=== PATIENT | male | born 1950 | race Two or more races ===

== ENCOUNTER 2021-05-11 14:56 | Inpatient (IN) | payer MEDICARE, MEDICAID ==
[~2021-05-11] VITALS: Ht 177.8 cm; Wt 97.1 kg
[2021-05-11] MEDS ORDERED: ASPirin 81 mg TAB PO ONE (15:30)
[2021-05-11 16:54] LABS: Hematocrit 39.4 % (41.0-53.0); Hemoglobin 13.6 g/dL (13.5-17.5); Mean Corpuscular Hemoglobin 31.2 pg (28.0-32.0); Mean Corpuscular Hgb Conc. 34.5 g/dL (32.0-36.0); Mean Corpuscular Volume 90.5 fL (80.0-100.0); Red Blood Cells 4.35 10^6/uL (4.5-5.90); Red Cell Distribution Width 13.1 % (11.8-14.3); White Blood Cell 8.2 10^3/uL (4.4-10.8)
[2021-05-11 16:57] LABS: Basophils % (manual) 0 (0.0-2.0); Blast Cells 0; Eosinophils % (manual) 0 (0-7); Metamyelocytes % 0; Myelocytes % 0; Promyelocytes % 0
[2021-05-11 17:07] LABS: Albumin 3.2 g/dL (3.4-5.0); Calcium 8.9 mg/dL (8.5-10.1); Magnesium 3.4 mg/dL (1.6-2.6); Potassium 3.4 mmol/L (3.5-5.1)
[2021-05-11 17:12] LABS: Band Neutrophils % (manual) 3; Lymphocytes % (manual) 9 (10.0-50.0); Monocytes % (manual) 11 (0-12); Reactive Lymphocytes 1
[2021-05-11 17:27] LABS: BUN/Creatinine Ratio 20.1; Bilirubin, Total 0.7 mg/dL (0.2-1.0); CRP High Sensitivity 12.9 mg/dL (< 0.3); Total Protein 7.8 g/dL (6.4-8.2)
[2021-05-11] MEDS ORDERED: ZINC SULFATE 220mg CAP or TAB PO ONE (19:15)
[2021-05-11] MEDS ORDERED: AZITHROMYCIN 500MG/ 250ML 250 ML IV ONE (19:15)
[2021-05-11] MEDS ORDERED: CHOLECALCIFEROL (VITD3) 2,000 UNIT CAP/TAB PO ONE (19:15)
[2021-05-11] MEDS ORDERED: methylPREDNISolone SOD SUCC 125 MG/2 ML VL IV ONE (19:15)
[2021-05-11] MEDS ORDERED: ASCORBIC ACID 500 MG TAB PO ONE (19:15)
[2021-05-11 21:37] LABS: Lactic Acid w/Reflex 2.3 mmol/L (0.4-2.0)
[2021-05-11] MEDS ORDERED: ACET250T3 PO (22:51)
[2021-05-11] MEDS ORDERED: TAM04C PO (22:51)
[2021-05-11] MEDS ORDERED: GLIP10TA9 PO (22:51)
[2021-05-11] MEDS ORDERED: BRIM0.2S2 OP (22:51)
[2021-05-11] MEDS ORDERED: CLOP75TA28 PO (22:51)
[2021-05-11] MEDS ORDERED: TRIA37.56 PO (22:51)
[2021-05-11] MEDS ORDERED: ATOR10TA52 PO (22:51)
[2021-05-11] MEDS ORDERED: LINA5TAB PO (22:51)
[2021-05-11] MEDS ORDERED: BICA50TA13 PO (22:51)
[2021-05-11] MEDS ORDERED: AMLO-496 PO (22:51)
[2021-05-11] MEDS ORDERED: MORPHINE SULFATE INJECTION 2 MG/ML SYRG IV PRN (23:00)
[2021-05-11] MEDS ORDERED: NITROGLYCERIN 0.4 MG SL TAB SL PRN (23:00)
[2021-05-11] MEDS ORDERED: REMDESIVIR PER PHARMACY 0 ML IV SCH (23:00)
[2021-05-11] MEDS ORDERED: TEMAZEPAM 15 MG CAP PO PRN (23:00)
[2021-05-11] MEDS ORDERED: cefTRIAXone 1GM/50ML D5W 50 ML IV ONE (23:00)
[2021-05-11] MEDS ORDERED: DEXTROSE (50%) 50ML SYRG IV PRN (23:00)
[2021-05-11] MEDS ORDERED: ONDANSETRON HCL 4 MG/2 ML VIAL IV PRN (23:00)
[2021-05-11] MEDS ORDERED: ACETAMINOPHEN 500 MG TAB PO PRN (23:00)
[2021-05-12] MEDS ORDERED: DORZ2SOL18 EACHEYE (04:57)
[2021-05-12] MEDS ORDERED: [UNRECOGNIZED DRUG - CODE] EACHEYE (04:57)
[2021-05-12] MEDS ORDERED: ZINC220T6 PO (04:57)
[2021-05-12] MEDS ORDERED: LEVO-28 PO (04:57)
[2021-05-12] MEDS ORDERED: NETA0.02 EACHEYE (04:57)
[2021-05-12 05:00] VITALS: BP 108/69
[2021-05-12] MEDS ORDERED: InsuLIN REG 1unit/0.01ml Soln (100units/ml) SC SCH (07:00)
[2021-05-12] MEDS ORDERED: ACCU-CHEK COMFORT CURVE STRIP VI SCH (07:00)
[2021-05-12 07:20] LABS: Hematocrit 38.1 % (41.0-53.0); Hemoglobin 12.8 g/dL (13.5-17.5); Mean Corpuscular Hemoglobin 30.5 pg (28.0-32.0); Mean Corpuscular Hgb Conc. 33.6 g/dL (32.0-36.0); Mean Corpuscular Volume 90.7 fL (80.0-100.0); Red Cell Distribution Width 13.4 % (11.8-14.3); White Blood Cell 6.6 10^3/uL (4.4-10.8)
[2021-05-12 07:38] LABS: Potassium 4.1 mmol/L (3.5-5.1)
[2021-05-12 07:39] LABS: Basophils % (manual) 0 (0.0-2.0); Blast Cells 0; Eosinophils % (manual) 0 (0-7); Promyelocytes % 0; Reactive Lymphocytes 0
[2021-05-12 07:46] LABS: BUN/Creatinine Ratio 27.5; Bilirubin, Total 0.5 mg/dL (0.2-1.0); Calcium 8.5 mg/dL (8.5-10.1); Total Protein 6.5 g/dL (6.4-8.2)
[2021-05-12] MEDS: cefTRIAXone 1GM/50ML D5W 50 ML IV SCH (08:52)
[2021-05-12 09:00] VITALS: BP 121/78
[2021-05-12 09:13] LABS: Band Neutrophils % (manual) 2; Lymphocytes % (manual) 10 (10.0-50.0); Metamyelocytes % 1; Monocytes % (manual) 4 (0-12); Myelocytes % 1
[2021-05-12] MEDS: DexAMETHasone SOD PHOS 10MG/1ML VIAL INJ IV SCH (09:38)
[2021-05-12] MEDS: AZITHROMYCIN 500MG/ 250ML 250 ML IV SCH (09:39)
[2021-05-12] MEDS: ZINC SULFATE 220mg CAP or TAB PO SCH (09:39)
[2021-05-12] MEDS: CLOPIDOGREL BISULFATE 75 MG TAB PO SCH (09:40)
[2021-05-12] MEDS: amLODIPine BESYLATE 5 MG TAB PO SCH (09:40)
[2021-05-12] MEDS: PANTOPRAZOLE 40 MG TAB PO SCH (09:40)
[2021-05-12] MEDS: ASCORBIC ACID 1,000 MG TAB PO SCH (09:41)
[2021-05-12] MEDS: CHOLECALCIFEROL (VITD3) 2,000 UNIT CAP/TAB PO SCH (09:41)
[2021-05-12] MEDS: ENOXAPARIN SOD 40 MG/0.4 ML SYRINGE SC SCH (09:42)
[2021-05-12] MEDS: TRIAMTERENE/HCTZ 75/50MG TABLET PO SCH (09:59)
[2021-05-12] MEDS ORDERED: DEXTROSE (50%) 50ML SYRG IV PRN (10:45)
[2021-05-12] MEDS: INSULIN 70/30 1unit/0.01ml Susp (100units/ml) SC SCH ×2 (12:05→17:51)
[2021-05-12] MEDS: ACCU-CHEK COMFORT CURVE STRIP VI SCH ×3 (12:06→22:02)
[2021-05-12] MEDS: InsuLIN REG 1unit/0.01ml Soln (100units/ml) SC SCH ×3 (12:07→22:04)
[2021-05-12 13:00] VITALS: BP 101/68
[2021-05-12] MEDS ORDERED: REMDESIVIR 200 MG in NS 210ml LOADING DOSE ADULT IV ONE (15:00)
[2021-05-12 17:00] VITALS: BP 108/69
[2021-05-12] MEDS: BUDESONIDE (INHALATION) 180 MCG IH IN SCH ×2 (17:25→23:00)
[2021-05-12] MEDS: TAMSULOSIN HYDROCHLORIDE 0.4 MG CAP PO SCH ×2 (17:50→18:00)
[2021-05-12 20:00] VITALS: BP 99/73
[2021-05-12 22:00] VITALS: BP 99/73
[2021-05-12] MEDS: ATORVASTATIN 20 MG TAB PO SCH (22:02)
[2021-05-12 23:18] LABS: Urine Bacteria NONE SEEN /hpf (None Seen); Urine Blood Negative /uL (Negative); Urine Specific Gravity 1.019 (1.001-1.035); Urine WBC 1 /hpf (0 - 3)
[2021-05-12] MEDS: ALBUTEROL SULF HFA 90MCG INH 200DOSE IN PRN (23:36)
[2021-05-13 05:00] VITALS: BP 108/72
[2021-05-13] MEDS: InsuLIN REG 1unit/0.01ml Soln (100units/ml) SC SCH ×4 (06:35→22:31)
[2021-05-13] MEDS: ACCU-CHEK COMFORT CURVE STRIP VI SCH ×4 (06:41→22:31)
[2021-05-13] MEDS: BUDESONIDE (INHALATION) 180 MCG IH IN SCH ×2 (07:00→19:53)
[2021-05-13] MEDS: INSULIN 70/30 1unit/0.01ml Susp (100units/ml) SC SCH ×3 (08:00→16:52)
[2021-05-13] MEDS: ALBUTEROL SULF HFA 90MCG INH 200DOSE IN PRN ×2 (08:41→19:53)
[2021-05-13 08:54] VITALS: BP 107/60
[2021-05-13 09:10] LABS: Albumin 2.9 g/dL (3.4-5.0); Calcium 8.8 mg/dL (8.5-10.1); Potassium 3.8 mmol/L (3.5-5.1)
[2021-05-13 09:12] LABS: BUN/Creatinine Ratio 24.7
[2021-05-13 09:15] LABS: Bilirubin, Total 0.3 mg/dL (0.2-1.0); Total Protein 6.3 g/dL (6.4-8.2)
[2021-05-13] MEDS: ENOXAPARIN SOD 40 MG/0.4 ML SYRINGE SC SCH (10:00)
[2021-05-13] MEDS: TRIAMTERENE/HCTZ 75/50MG TABLET PO SCH (10:00)
[2021-05-13] MEDS: amLODIPine BESYLATE 5 MG TAB PO SCH (10:00)
[2021-05-13] MEDS: DexAMETHasone SOD PHOS 10MG/1ML VIAL INJ IV SCH (10:02)
[2021-05-13] MEDS: ZINC SULFATE 220mg CAP or TAB PO SCH (10:03)
[2021-05-13] MEDS: PANTOPRAZOLE 40 MG TAB PO SCH (10:03)
[2021-05-13] MEDS: CLOPIDOGREL BISULFATE 75 MG TAB PO SCH (10:03)
[2021-05-13] MEDS: cefTRIAXone 1GM/50ML D5W 50 ML IV SCH (10:03)
[2021-05-13] MEDS: ASCORBIC ACID 1,000 MG TAB PO SCH (10:04)
[2021-05-13] MEDS: CHOLECALCIFEROL (VITD3) 2,000 UNIT CAP/TAB PO SCH (10:04)
[2021-05-13] MEDS: AZITHROMYCIN 500MG/ 250ML 250 ML IV SCH (10:07)
[2021-05-13 13:00] VITALS: BP 107/69
[2021-05-13] MEDS: REMDESIVIR 100mg 100 MG in SODIUM CHL 0.9% 230 ML IV SCH (14:36)
[2021-05-13 22:00] VITALS: BP 106/72
[2021-05-13] MEDS: DORZOLAMIDE HCL 2% OPTH(EYE) SOL 10ML EACHEYE SCH (22:30)
[2021-05-13] MEDS: ATORVASTATIN 20 MG TAB PO SCH (22:30)
[2021-05-13] MEDS: BRIMONIDINE 0.2% OPTH Soln 5ml EACHEYE SCH (22:30)
[2021-05-13] MEDS: NETARSUDIL 0.02% OP SCH (22:30)
[2021-05-14 05:00] VITALS: BP 101/68
[2021-05-14] MEDS: BUDESONIDE (INHALATION) 180 MCG IH IN SCH ×2 (06:01→20:19)
[2021-05-14] MEDS: ALBUTEROL SULF HFA 90MCG INH 200DOSE IN PRN ×2 (06:02→20:20)
[2021-05-14] MEDS: ACCU-CHEK COMFORT CURVE STRIP VI SCH ×4 (06:31→22:00)
[2021-05-14] MEDS: InsuLIN REG 1unit/0.01ml Soln (100units/ml) SC SCH ×4 (06:31→22:00)
[2021-05-14 07:59] LABS: Calcium 8.7 mg/dL (8.5-10.1); Chloride 109 mmol/L (98-107); Potassium 3.5 mmol/L (3.5-5.1); Sodium 140 mmol/L (136-145)
[2021-05-14 08:03] LABS: Alanine Aminotransferase 28 U/L (16-61); Albumin 2.8 g/dL (3.4-5.0); Aspartate Aminotransferase 25 U/L (15-37); BUN/Creatinine Ratio 26.6; Blood Urea Nitrogen 41 mg/dL (7-18); Carbon Dioxide 21 mmol/L (21-32); GFR African American 58 mL/min; GFR Non-African American 48 mL/min; Glucose 116 mg/dL (74-106)
[2021-05-14 08:05] LABS: Alkaline Phosphatase 73 U/L (45-117); Bilirubin, Total 0.3 mg/dL (0.2-1.0); Total Protein 6.6 g/dL (6.4-8.2)
[2021-05-14 08:08] LABS: Anion Gap 10 (5-15)
[2021-05-14] MEDS: cefTRIAXone 1GM/50ML D5W 50 ML IV SCH (08:24)
[2021-05-14] MEDS: INSULIN 70/30 1unit/0.01ml Susp (100units/ml) SC SCH ×3 (08:24→17:30)
[2021-05-14 09:00] VITALS: BP 105/73
[2021-05-14] MEDS: LATANOPROSTENE BUNOD 0.024% OP SCH ×2 (10:00→22:00)
[2021-05-14] MEDS: BRIMONIDINE 0.2% OPTH Soln 5ml EACHEYE SCH ×2 (11:00→22:00)
[2021-05-14] MEDS: DORZOLAMIDE HCL 2% OPTH(EYE) SOL 10ML EACHEYE SCH ×2 (11:00→22:00)
[2021-05-14] MEDS: AZITHROMYCIN 500MG/ 250ML 250 ML IV SCH (11:03)
[2021-05-14] MEDS: BICALUTAMIDE 50 MG TAB PO SCH (11:03)
[2021-05-14] MEDS: DexAMETHasone SOD PHOS 10MG/1ML VIAL INJ IV SCH (11:03)
[2021-05-14] MEDS: ZINC SULFATE 220mg CAP or TAB PO SCH (11:03)
[2021-05-14] MEDS: ENOXAPARIN SOD 40 MG/0.4 ML SYRINGE SC SCH (11:04)
[2021-05-14] MEDS: ASCORBIC ACID 1,000 MG TAB PO SCH (11:04)
[2021-05-14] MEDS: CHOLECALCIFEROL (VITD3) 2,000 UNIT CAP/TAB PO SCH (11:04)
[2021-05-14] MEDS: PANTOPRAZOLE 40 MG TAB PO SCH (11:04)
[2021-05-14] MEDS: CLOPIDOGREL BISULFATE 75 MG TAB PO SCH (11:04)
[2021-05-14 13:00] VITALS: BP 110/74
[2021-05-14] MEDS: REMDESIVIR 100mg 100 MG in SODIUM CHL 0.9% 230 ML IV SCH (15:24)
[2021-05-14 16:58] VITALS: BP 97/63
[2021-05-14 22:00] VITALS: BP 127/72
[2021-05-14] MEDS: NETARSUDIL 0.02% OP SCH (22:00)
[2021-05-14] MEDS: ATORVASTATIN 20 MG TAB PO SCH (22:00)
[2021-05-15 04:53] VITALS: BP 104/66
[2021-05-15 05:50] LABS: Mean Corpuscular Hemoglobin 30.3 pg (28.0-32.0)
[2021-05-15 05:53] LABS: Hematocrit 37.1 % (41.0-53.0); Hemoglobin 12.3 g/dL (13.5-17.5); Mean Corpuscular Hgb Conc. 33.2 g/dL (32.0-36.0); Mean Corpuscular Volume 91.3 fL (80.0-100.0); Red Blood Cells 4.07 10^6/uL (4.5-5.90); Red Cell Distribution Width 13.1 % (11.8-14.3); White Blood Cell 12.5 10^3/uL (4.4-10.8)
[2021-05-15 06:13] LABS: Basophils % (manual) 0 (0.0-2.0); Blast Cells 0; Eosinophils % (manual) 0 (0-7); Promyelocytes % 0; Reactive Lymphocytes 0
[2021-05-15 06:41] LABS: Potassium 3.3 mmol/L (3.5-5.1)
[2021-05-15] MEDS: InsuLIN REG 1unit/0.01ml Soln (100units/ml) SC SCH ×4 (06:49→21:52)
[2021-05-15] MEDS: ACCU-CHEK COMFORT CURVE STRIP VI SCH ×4 (06:49→22:00)
[2021-05-15 06:50] LABS: Albumin 2.7 g/dL (3.4-5.0); BUN/Creatinine Ratio 28.5; Calcium 8.8 mg/dL (8.5-10.1)
[2021-05-15 06:52] LABS: Bilirubin, Total 0.3 mg/dL (0.2-1.0); Total Protein 6.2 g/dL (6.4-8.2)
[2021-05-15] MEDS: INSULIN 70/30 1unit/0.01ml Susp (100units/ml) SC SCH ×3 (08:00→18:23)
[2021-05-15 09:00] VITALS: BP 109/73
[2021-05-15] MEDS: cefTRIAXone 1GM/50ML D5W 50 ML IV SCH (09:09)
[2021-05-15] MEDS: BRIMONIDINE 0.2% OPTH Soln 5ml EACHEYE SCH ×2 (09:10→22:00)
[2021-05-15] MEDS: DexAMETHasone SOD PHOS 10MG/1ML VIAL INJ IV SCH (09:10)
[2021-05-15] MEDS: PANTOPRAZOLE 40 MG TAB PO SCH (09:10)
[2021-05-15] MEDS: ZINC SULFATE 220mg CAP or TAB PO SCH (09:10)
[2021-05-15] MEDS: DORZOLAMIDE HCL 2% OPTH(EYE) SOL 10ML EACHEYE SCH ×2 (09:10→22:00)
[2021-05-15] MEDS: CLOPIDOGREL BISULFATE 75 MG TAB PO SCH (09:10)
[2021-05-15] MEDS: CHOLECALCIFEROL (VITD3) 2,000 UNIT CAP/TAB PO SCH (09:11)
[2021-05-15] MEDS: ENOXAPARIN SOD 40 MG/0.4 ML SYRINGE SC SCH (09:11)
[2021-05-15] MEDS: ASCORBIC ACID 1,000 MG TAB PO SCH (09:11)
[2021-05-15] MEDS: BICALUTAMIDE 50 MG TAB PO SCH (09:39)
[2021-05-15] MEDS: LATANOPROSTENE BUNOD 0.024% OP SCH ×2 (09:40→22:00)
[2021-05-15] MEDS: BUDESONIDE (INHALATION) 180 MCG IH IN SCH ×2 (10:00→19:59)
[2021-05-15 10:40] LABS: Band Neutrophils % (manual) 2; Lymphocytes % (manual) 9 (10.0-50.0); Metamyelocytes % 2; Monocytes % (manual) 10 (0-12); Myelocytes % 4
[2021-05-15] MEDS: ALBUTEROL SULF HFA 90MCG INH 200DOSE IN PRN ×2 (11:04→19:59)
[2021-05-15] MEDS: AZITHROMYCIN 500MG/ 250ML 250 ML IV SCH (12:03)
[2021-05-15 13:00] VITALS: BP 104/70
[2021-05-15] MEDS: REMDESIVIR 100mg 100 MG in SODIUM CHL 0.9% 230 ML IV SCH (16:07)
[2021-05-15 17:00] VITALS: BP 114/73
[2021-05-15] MEDS ORDERED: CHOL1CAP47 PO (18:35)
[2021-05-15] MEDS ORDERED: PANT40T PO (18:35)
[2021-05-15] MEDS ORDERED: ASCO10003 PO (18:35)
[2021-05-15] MEDS ORDERED: ALBUAER3 IN (18:35)
[2021-05-15] MEDS ORDERED: DEX4T PO (18:35)
[2021-05-15] MEDS: ATORVASTATIN 20 MG TAB PO SCH (22:00)
[2021-05-15] MEDS: NETARSUDIL 0.02% OP SCH (22:00)
[2021-05-15 22:06] VITALS: BP 110/68
[2021-05-16 04:44] VITALS: BP 104/63
[2021-05-16] MEDS: InsuLIN REG 1unit/0.01ml Soln (100units/ml) SC SCH ×3 (06:36→16:59)
[2021-05-16] MEDS: ACCU-CHEK COMFORT CURVE STRIP VI SCH ×3 (06:36→16:59)
[2021-05-16] MEDS: INSULIN 70/30 1unit/0.01ml Susp (100units/ml) SC SCH ×3 (08:00→16:59)
[2021-05-16 09:00] VITALS: BP 121/59
[2021-05-16] MEDS: cefTRIAXone 1GM/50ML D5W 50 ML IV SCH (09:53)
[2021-05-16] MEDS: PANTOPRAZOLE 40 MG TAB PO SCH (09:55)
[2021-05-16] MEDS: ENOXAPARIN SOD 40 MG/0.4 ML SYRINGE SC SCH (09:55)
[2021-05-16] MEDS: CHOLECALCIFEROL (VITD3) 2,000 UNIT CAP/TAB PO SCH (09:55)
[2021-05-16] MEDS: ASCORBIC ACID 1,000 MG TAB PO SCH (09:55)
[2021-05-16] MEDS: ZINC SULFATE 220mg CAP or TAB PO SCH (09:56)
[2021-05-16] MEDS: DexAMETHasone SOD PHOS 10MG/1ML VIAL INJ IV SCH (09:56)
[2021-05-16] MEDS: CLOPIDOGREL BISULFATE 75 MG TAB PO SCH (09:56)
[2021-05-16] MEDS ORDERED: acetaZOLAMIDE 250 MG TAB PO SCH (10:00)
[2021-05-16] MEDS: BRIMONIDINE 0.2% OPTH Soln 5ml EACHEYE SCH (10:00)
[2021-05-16] MEDS: DORZOLAMIDE HCL 2% OPTH(EYE) SOL 10ML EACHEYE SCH (10:00)
[2021-05-16] MEDS: LATANOPROSTENE BUNOD 0.024% OP SCH (10:00)
[2021-05-16] MEDS: ALBUTEROL SULF HFA 90MCG INH 200DOSE IN PRN (10:05)
[2021-05-16] MEDS: BUDESONIDE (INHALATION) 180 MCG IH IN SCH (10:05)
[2021-05-16] MEDS: BICALUTAMIDE 50 MG TAB PO SCH (11:06)
[2021-05-16] MEDS: AZITHROMYCIN 500MG/ 250ML 250 ML IV SCH (11:06)
[2021-05-16 13:00] VITALS: BP 120/77
[2021-05-16] MEDS: REMDESIVIR 100mg 100 MG in SODIUM CHL 0.9% 230 ML IV SCH (15:02)
[2021-05-16 15:17] LABS: Albumin 2.6 g/dL (3.4-5.0); Calcium 8.1 mg/dL (8.5-10.1); Potassium 4.5 mmol/L (3.5-5.1)
[2021-05-16 15:24] LABS: BUN/Creatinine Ratio 24.2; Bilirubin, Total 0.4 mg/dL (0.2-1.0); Total Protein 6.1 g/dL (6.4-8.2)
== END 2021-05-16 17:10 | disposition home or self-care (01) | DRG 177 ==
LOC: EDBD 14:56 → ER 14:56 → TELE 22:56 → TELE-EAST 23:41
PROVIDERS: ADMIT Nurse Practitioner; ATTEND Internal Medicine
PROC: XW033E5 Introduction of Remdesivir Anti-infective into Peripheral Vein, Percutaneous Approach, New Technology Group 5 (ICD-10-PCS; principal; 2021-05-11)
DX: U07.1 COVID-19 (principal); J12.82 Pneumonia due to coronavirus disease 2019; J96.01 Acute respiratory failure with hypoxia; N17.9 Acute kidney failure, unspecified; E66.9 Obesity, unspecified; D89.839 Cytokine release syndrome, grade unspecified; E11.22 Type 2 diabetes mellitus with diabetic chronic kidney disease; I12.9 Hypertensive chronic kidney disease with stage 1 through stage 4 chronic kidney disease, or unspecified chronic kidney disease; I25.10 Atherosclerotic heart disease of native coronary artery without angina pectoris; N18.30 Chronic kidney disease, stage 3 unspecified; N40.0 Benign prostatic hyperplasia without lower urinary tract symptoms; R42 Dizziness and giddiness; R43.9 Unspecified disturbances of smell and taste; Z95.1 Presence of aortocoronary bypass graft; Z83.3 Family history of diabetes mellitus; Z68.30 Body mass index [BMI] 30.0-30.9, adult
CPT/HCPCS: 36415; 36600; 71045; 80053; 81001; 82728; 82805; 82962; 83036; 83605; 83615; 83735; 83880; 84484; 85007; 85027; 85379; 86141; 87040; 87426; 93005; 94640; 96365; 96375; 97110; 97116; 97163; 97530; G0378; J0696; J1100; J1815